=== PATIENT | male | born 1990 | race Native Hawaiian/Other Pacific Islander ===

== ENCOUNTER 2017-08-30 04:34 | Emergency (ER) | payer OTHER ==
[~2017-08-30] VITALS: Ht 180.3 cm; Wt 74.8 kg
== END 2017-08-30 06:31 | disposition home or self-care (01) ==
LOC: ED 04:34
DX: N20.1 Calculus of ureter (principal); R10.9 Unspecified abdominal pain
CPT/HCPCS: 81000; 96372; 99283; J1885